=== PATIENT | female | born 2005 | race Caucasian/White ===

== ENCOUNTER 2025-01-26 14:19 | Emergency (ER) | payer OTHER, SELFPAY ==
[2025-01-26 14:21] VITALS: BP 144/67
--- NOTE | 2025-01-26 15:01 | ED.GENMED ---
History of Present Illness
General
Chief Complaint: Musculo-Skeletal Complaint
Time Seen by Provider: 01/26/25 14:26
History of Present Illness
History of Present Illness:
19-year-old female presents to the emergency department for evaluation of right chest wall pain. States her pain initially began 2 weeks ago after being sick and coughing frequently, the pain gradually improved and fully resolved earlier this week
but today while 'horsing around' with her father when the pain reoccurred. She felt a crack and is concerned for fracture. Denies pain with deep breathing. No fevers or chills
Review of Systems
Review of Systems
Allergies reviewed?: Yes
All Other Systems: ROS reviewed and negative except as documented in HPI and ROS
Phy Exam
Physical Exam
Physical Exam:
GEN: Well appearing, NAD, WDWN
HEENT: Oral mucosa moist, no scleral icterus
Cardiac: Regular rate
Lung: No respiratory distress, no tachypnea, lungs clear
MSK: No gross deformity or injuries. Reproducible tenderness to the right lateral chest wall in the midaxillary line, approximately seventh eighth rib location. No palpable deformity or ecchymosis
Skin: Good color, no pallor or jaundice, no rashes
Neuro: AO x3, moves all extremities freely
Psych: Calm, cooperative
Course
Orders/Labs/Results
Orders:
Orders
01/26/25 14:24
CR Ribs-right 3 Vw W/pa Chest* Urgent
Comment:
Reason For Exam: pain, injury
Vital Signs
Initial and Last Documented VS:
Initial Vital Signs
Temp Pulse Resp BP Pulse Ox
98.2 F 67 16 144/67 98
01/26/25 14:21 01/26/25 14:21 01/26/25 14:21 01/26/25 14:21 01/26/25 14:21
Last Documented Vital Signs
Temp Pulse Resp BP Pulse Ox
98.2 F 67 16 144/67 98
01/26/25 14:21 01/26/25 14:21 01/26/25 14:21 01/26/25 14:21 01/26/25 15:02
MDM/Problems Addressed
MDM/Problems Addressed:
Imaging is reassuring, no evidence for fracture. Discussed supportive care
*Pulse Oximetry
SaO2: 98
Oxygen Mode of Delivery: Room air
Patient hypoxic: no
*Critical Care Note
Total Time (30-74mins, 75-104mins- exclusive of procedures): Not Applicable
ED Attending Note
-
Portions of this chart may have been created with voice recognition software.� Occasional wrong word or��sound alike� substitutions may have occurred due to the inherent limitations of voice recognition software.
Discharge Plan
Departure
Patient Disposition: Home (Routine Discharge)
Date of Disposition: 01/26/25
Time of Disposition: 15:01
Patient with high blood pressure during this ER visit?: No
Discharge Problem:
Chest wall muscle strain
Instructions: Rib fracture or bruised rib - ED (DC)
Prescriptions:
No Action
No Current Medications
0
Referrals:
Can Flower III, DO [Family Provider, Pediatrics]
Activity Restrictions/Additional Instructions:
Tylenol and Ibuprofen every 6-8 hours as needed for pain
Try lidocaine patches to the injured area
Interventions
Interventions:
*Risk Screen - Suicide Last Done: 01/26/25 14:21
*General Assessment Last Done: 01/26/25 14:21
*Neglect/Abuse Screening Last Done: 01/26/25 15:27
*ED- Fall Risk Assessment Last Done: 01/26/25 15:27
*ED COVID-19 Vaccine History Last Done: 01/26/25 14:21
*ED Influenza Vaccine History Last Done: 01/26/25 14:21
*Nursing Disposition Last Done: 01/26/25 15:37
ED-Musculoskeletal Assessment Last Done: 01/26/25 15:27
Discharge Date and Time
Discharge Date/Time: 01/26/25 15:37
Print Language: [place]
== END 2025-01-26 15:37 | disposition home or self-care (01) ==
LOC: EMR 14:19
PROVIDERS: EMERGENCY PHYSICIAN Emergency Medicine; FAMILY PHYSICIAN Student in an Organized Health Care Education/Training Program
DX: S29.011A Strain of muscle and tendon of front wall of thorax, initial encounter (principal); X58.XXXA Exposure to other specified factors, initial encounter; Y93.83 Activity, rough housing and horseplay
CPT/HCPCS: 99283; 71101